=== PATIENT | female | born 1955 | race Asian ===

== ENCOUNTER 2016-07-23 15:51 | Emergency (ER) | payer BC ==
[~2016-07-23] VITALS: Ht 157.5 cm; Wt 68.9 kg
[~2016-07-23 15:51] MED LIST: AZITHROMYCIN250 MG ORAL; IBUPROFEN600 MG PO; NKM; PROMETHAZINE-C118 M1 ORAL; TYLENOL EXTRA500 MG ORAL; VICODIN 5-5001 EACH PO
[2016-07-23 16:05] VITALS: BP 130/80
[2016-07-23] MEDS ORDERED: IBUPROFEN600 MG ORAL (17:28)
[2016-07-23 17:33] VITALS: BP 129/75
--- NOTE | 2016-07-23 20:34 | Emergency Room Report ---
History of Present Illness General Chief Complaint: Multiple Trauma/Fall Source: Patient Present Illness HPI 60-year-old female presents to ED complaining of left elbow pain and bilateral knee pain. States that when walking work today she tripped and fell landing on both knees and left elbow. Patient denies hitting her head or LOC. Patient is here complaining of pain to her left elbow and bilateral knees. Pain as throbbing, 6/10, nonradiating. Worse with walking. No aggravating relieving factors. Denies any other injuries. Denies any other associated symptoms Allergies: Coded Allergies: AMOXICILLIN (Verified Allergy, Unknown, 07/24/12) PENICILLIN (Unverified Allergy, Unknown, 02/14/15) Uncoded Allergies: NUTS (Allergy, Unknown, 07/23/16) Patient History Past Medical History: DM Past Surgical History: none Pertinent Family History: none Social History: Denies: alcohol use, drug use, smoking Now: No Immunizations: UTD Reviewed Nursing Documentation: PMH: Agreed, PSxH: Agreed Nursing Documentation-PMH Past Medical History: No History, Except For Hx Cardiac Problems: No - high cholesterol, arthritis, osteoarthritis Hx Diabetes: Yes Review of Systems All Other Systems: negative except mentioned in HPI Physical Exam Vital Signs Date Time Temp Pulse Resp B/P Pulse Ox O2 Delivery O2 Flow Rate FiO2 07/23/16 15:56 97.9 88 16 130/80 97 Room Air Sp02 EP Interpretation: reviewed, normal General Appearance: no apparent distress, alert, GCS 15, non-toxic Head: normocephalic Eyes: bilateral eye PERRL, bilateral eye normal inspection ENT: normal ENT inspection Neck: normal inspection Respiratory: normal inspection Cardiovascular #1: normal inspection Gastrointestinal: normal inspection Rectal: deferred Genitourinary: no CVA tenderness Musculoskeletal: tender - L elbow. full ROM noted. no bruising/deformity Neurologic: alert, oriented x3, responsive, motor strength/tone normal, sensory intact, speech normal Psychiatric: normal inspection Skin: normal inspection Lymphatic: normal inspection Procedures Splinting Splinting : Pre-Made Type: shoulder sling Medical Decision Making Diagnostic Impression: Primary Impression: Elbow contusion Qualified Codes: S50.02XA - Contusion of left elbow, initial encounter Additional Impression: Multiple injuries due to trauma ER Course Hospital Course 60-year-old F presents to ED complaining of left elbow and bilateral knee pain s /p trip and fall Differential diagnoses include: Fracture, dislocation, sprain, contusion Clinical course Patient placed on stretcher. After initial history and physical, I ordered pain medications and Xrays of left elbow and bilateral knees Xrays prelim read shows small chip fracture of the olecranon, bilateral knee x- rays unremarkable except for some degenerative joint disease Placed in shoulder sling Diagnosis - elbow contusion, multiple injuries due to fall Stable and discharged to home with prescription for Motrin. apply ice, keep elevated. weight bear as tolerated. Followup with PMD. Return to ED if symptoms recur or worsen Other X-Ray Diagnostic Results Other X-Ray Diagnostic Results : X-Ray Ordered: L elbow, R knee, L knee EP Interpretation: No Findings: no dislocation, no soft tissue swelling Number of Views: 3 Other Impression Left elbow- small chip fracture of olecranon, no dislocation, no soft tissue swelling Right knee-No fracture, no dislocation, no soft tissue swelling Left knee-No fracture, no dislocation, no soft tissue swelling Last Vital Signs Date Time Temp Pulse Resp B/P Pulse Ox O2 Delivery O2 Flow Rate FiO2 07/23/16 17:33 97.9 76 18 129/75 99 Room Air Status: improved Disposition: HOME, SELF-CARE Condition: Stable Scripts Ibuprofen* (MOTRIN*) 600 Mg Tablet 600 MG ORAL Q8H Y for For Pain, #30 TAB 0 Refills Prov: IZA BARKER M.D. 07/23/16 Departure Forms: Return to Work Return to Work Date: Jul 25, 2016 Work Restrictions: No Heavy Lifting Patient Instructions: Elbow Contusion, [id number] IZA BARKER M.D. Jul 23, 2016 20:34
--- NOTE | 2016-07-24 09:44 | Diagnostic Imaging Report ---
Indication: Right knee pain Technique: Right knee 3 views Comparison: None Findings: There is no radiographically evident acute fracture or dislocation. Tricompartment osteophytes are seen with subchondral cystic changes. A small joint effusion may be present. There is osteopenia. Tiny ossific density projecting over the posterior joint on the lateral projection could represent a small intra-articular body. Impression: No radiographically evident acute fracture or dislocation. Degenerative changes of the right knee. Osteopenia. Suprapatellar fullness and a small joint effusion may be present. Clinical correlation recommended
--- NOTE | 2016-07-24 09:44 | Diagnostic Imaging Report ---
Indication: Left knee pain Technique: XRAY KNEE THREE VIEWS LEFT Comparison: None Findings: There is no radiographically evident acute fracture or dislocation. Medial and patellofemoral compartment osteophytes are seen with severe patellofemoral compartment joint space narrowing. There is no joint effusion. Impression: No acute osseous abnormality. Left knee degenerative changes. Osteopenia.
--- NOTE | 2016-07-24 11:46 | Diagnostic Imaging Report ---
Indication: Left elbow pain Technique: XRAY ELBOW MIN 3 VIEWS LEFT Comparison: None Findings: There is a subtle linear lucency of the lateral radial head on the AP projection. Small elbow joint effusion is seen. There is soft tissue swelling of the medial elbow. Tiny enthesophyte is noted at the triceps insertion. Impression: Subtle linear lucency of the lateral radial head on the AP projection possibly a nondisplaced fracture versus trabeculation. Small elbow joint effusion. Followup/further evaluation recommended as indicated. Soft tissue swelling of the medial elbow. Findings discussed with Dr. Navarro at 0940 hours by phone.
== END 2016-07-23 17:34 | disposition home or self-care (01) ==
LOC: EMR 16:10
DX: S50.02XA Contusion of left elbow, initial encounter (principal); M25.562 Pain in left knee; M25.561 Pain in right knee; W01.0XXA Fall on same level from slipping, tripping and stumbling without subsequent striking against object, initial encounter; Y92.89 Other specified places as the place of occurrence of the external cause; Y99.9 Unspecified external cause status; E11.9 Type 2 diabetes mellitus without complications; Z88.0 Allergy status to penicillin; Z88.1 Allergy status to other antibiotic agents; Z91.018 Allergy to other foods
CPT/HCPCS: 82962; 99284

== ENCOUNTER 2016-08-20 16:57 | Emergency (ER) | payer BC, OTHER ==
[~2016-08-20] VITALS: Ht 153 cm; Wt 72.6 kg
[~2016-08-20 16:57] MED LIST changes: +IBUPROFEN600 MG ORAL
--- NOTE | 2016-08-20 17:00 | Emergency Room Report ---
History of Present Illness General Chief Complaint: Knee pain Source: Patient Present Illness HPI Patient is a 60-year-old female who presented after a fall at work. 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 The patient stated that she fell forward onto her forearms and to her left knee. She reported having a left knee pain. Patient stated that she had been at work at time of injury. She denies any numbness or weakness distally. Injury occurred just prior to arrival Allergies: Coded Allergies: AMOXICILLIN (Verified Allergy, Unknown, 07/24/12) PENICILLIN (Unverified Allergy, Unknown, 02/14/15) Uncoded Allergies: NUTS (Allergy, Unknown, 07/23/16) Patient History Past Medical History: see triage record Reviewed Nursing Documentation: PMH: Agreed, PSxH: Agreed Nursing Documentation-PMH Hx Cardiac Problems: No - high cholesterol, arthritis, osteoarthritis Hx Diabetes: Yes Review of Systems All Other Systems: negative except mentioned in HPI Physical Exam General Appearance: well appearing, no apparent distress, alert, GCS 15 Head: normocephalic, atraumatic ENT: hearing grossly normal, normal voice Neck: full range of motion, supple Respiratory: normal inspection, lungs clear, no respiratory distress, speaking full sentences Cardiovascular #1: normal inspection, normal peripheral pulses, regular rate, rhythm Gastrointestinal: normal bowel sounds, non tender, soft Musculoskeletal: normal inspection, back normal, digits/nails normal, no calf tenderness Neurologic: normal inspection, alert, oriented x3, responsive, normal gait Psychiatric: mood/affect normal Skin: no rash Medical Decision Making Diagnostic Impression: Primary Impression: Knee contusion Additional Impression: Elbow contusion ER Course Patient presented for pain after fall. Differential diagnoses included wasn't limited to contusion, sprain, fracture among others . The patient is a sign of head injury or neck injury. The patient fell forward onto her forearms. This appears to be a simple slip and fall. The patient noted have some soft tissue swelling to her left knee. The patient also had some pain to both elbows which did not appear to require x-ray imaging. The patient was noted to have x-rays for view interpreted by me with degenerative changes without any fracture normal bony alignment. Patient was placed on light duty. The patient is advised to followup with employee health in 2-3 days. Patient was given prescription for NSAIDs and placed in an Evgeny wrap. Status: improved Disposition: HOME, SELF-CARE Condition: Stable Scripts Ibuprofen* (MOTRIN*) 600 Mg Tablet 600 MG ORAL Q8H Y for For Pain, #30 TAB 0 Refills Prov: Daniel Almazan 08/20/16 Daniel Almazan Aug 20, 2016 17:00
[2016-08-20 17:08] VITALS: BP 138/78
[2016-08-20 18:00] VITALS: BP 136/80
[2016-08-20] MEDS ORDERED: IBUPROFEN600 MG ORAL (18:06)
[2016-08-20 18:19] VITALS: BP 136/80
--- NOTE | 2016-08-21 08:44 | Diagnostic Imaging Report ---
History: Pain status post fall. Technique: Frontal, lateral, axial, and tunnel views of the left knee are provided. Comparison: No prior study is available for comparison. Findings: Moderate narrowing of the medial compartment and mild narrowing of the lateral compartment and severe patellofemoral compartment narrowing with prominence of the tibial spines and mild tricompartmental osteophytosis is consistent with moderate osteoarthritis of the left knee. A small joint effusion is present. No fractures or dislocation is seen. Impression: Moderate left knee osteoarthritis, as described. No acute fracture or dislocation identified.
== END 2016-08-20 18:19 | disposition home or self-care (01) ==
LOC: EMR 17:05
DX: S80.02XA Contusion of left knee, initial encounter (principal); S50.00XA Contusion of unspecified elbow, initial encounter; E11.9 Type 2 diabetes mellitus without complications; E78.00 Pure hypercholesterolemia, unspecified; M19.90 Unspecified osteoarthritis, unspecified site; Z88.0 Allergy status to penicillin; Z88.1 Allergy status to other antibiotic agents; Z91.018 Allergy to other foods; W18.09XA Striking against other object with subsequent fall, initial encounter; Y92.9 Unspecified place or not applicable; Y99.0 Civilian activity done for income or pay
CPT/HCPCS: 29530; 99283

== ENCOUNTER 2018-03-20 23:24 | Emergency (ER) | payer OTHER ==
[~2018-03-20] VITALS: Ht 157.5 cm; Wt 70.3 kg
[2018-03-21 00:02] VITALS: BP 138/72
[2018-03-21] MEDS ORDERED: IBUPROFEN600 MG ORAL (00:04)
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
[2018-03-21 00:10] VITALS: BP 136/71
--- NOTE | 2018-03-21 08:55 | Diagnostic Imaging Report ---
Indication: Chest pain Technique: One view of the chest Comparison: 10/22/2011 Findings: Lungs and pleural spaces are clear. Heart size is normal. No significant change Impression: No acute process
== END 2018-03-21 00:10 | disposition home or self-care (01) ==
LOC: EMR 23:44
DX: S20.212A Contusion of left front wall of thorax, initial encounter (principal); S30.1XXA Contusion of abdominal wall, initial encounter; R07.89 Other chest pain; E11.9 Type 2 diabetes mellitus without complications; Y04.0XXA Assault by unarmed brawl or fight, initial encounter; Y93.F9 Activity, other caregiving; Y92.230 Patient room in hospital as the place of occurrence of the external cause; Y99.0 Civilian activity done for income or pay; Z88.0 Allergy status to penicillin
CPT/HCPCS: 71045; 99283

== ENCOUNTER 2019-02-25 14:16 | Emergency (ER) | payer OTHER ==
[~2019-02-25] VITALS: Ht 157.5 cm; Wt 67.1 kg
[2019-02-25] MEDS ORDERED: NKM (14:46)
--- NOTE | 2019-02-25 15:53 | Emergency Room Report ---
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 Denies fall or injury. Denies pain radiation, tingling or numbness. Rating the pain in the left knee 5 out of 10 especially upon flexion of the knee and pointing to popliteal area being more painful. Has not taken any medication for pain other than over-the- counter ibuprofen. Denies chest pain, shortness of breath, palpitation, abdominal pain, nausea vomiting. Denies calf tenderness. Denies recent surgery , travel, or immobility. Allergies: Coded Allergies: AMOXICILLIN (Verified Allergy, Unknown, 02/25/19) PENICILLIN (Unverified Allergy, Unknown, 02/25/19) Uncoded Allergies: NUTS (Allergy, Unknown, 07/23/16) Patient History Past Medical History: see triage record Past Surgical History: unable to obtain Pertinent Family History: none Now: No Immunizations: UTD Reviewed Nursing Documentation: PMH: Agreed; PSxH: Agreed Nursing Documentation-PMH Past Medical History: No History, Except For Hx Cardiac Problems: No - high cholesterol, arthritis, osteoarthritis Hx Diabetes: Yes Review of Systems All Other Systems: negative except mentioned in HPI Physical Exam Vital Signs Date Time Temp Pulse Resp B/P (MAP) Pulse Ox O2 Delivery O2 Flow Rate FiO2 02/25/19 14:43 97.7 88 16 135/78 (97) 95 Room Air Sp02 EP Interpretation: reviewed, normal General Appearance: no apparent distress, alert, GCS 15, non-toxic Head: normocephalic, atraumatic Eyes: bilateral eye normal inspection, bilateral eye PERRL ENT: hearing grossly normal, normal pharynx, no angioedema, normal voice Neck: full range of motion, supple, thyroid normal, supple/symm/no masses Respiratory: normal inspection, chest non-tender, lungs clear, normal breath sounds, no rhonchi, no wheezing Cardiovascular #1: regular rate, rhythm, no edema, no murmur, normal capillary refill Cardiovascular #2: 2+ dorsalis pedis (R), 2+ dorsalis pedis (L) Gastrointestinal: normal bowel sounds, non tender, soft, non-distended, no guarding, no rebound Genitourinary: normal inspection, no CVA tenderness Musculoskeletal: back normal, digits/nails normal, gait/station normal, normal range of motion, non-tender, no calf tenderness, pelvis stable Neurologic: normal inspection, alert, oriented x3, responsive Psychiatric: judgement/insight normal, memory normal, mood/affect normal, no suicidal/homicidal ideation Skin: no rash Lymphatic: no adenopathy Medical Decision Making PA Attestation All diagnoses and treatment plans were reviewed and discussed with my supervising physician Dr. 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 Denies fall or injury. Denies pain radiation, tingling or numbness. Rating the pain in the left knee 5 out of 10 especially upon flexion of the knee and pointing to popliteal area being more painful. Has not taken any medication for pain other than over-the- counter ibuprofen. Denies chest pain, shortness of breath, palpitation, abdominal pain, nausea vomiting. Denies calf tenderness. Denies recent surgery , travel, or immobility. Ddx considered but are not limited to: Knee sprain, strain, fracture, contusion , meniscus tear injury, arthritis of knee Vital signs: are WNL, pt. is afebrile H&PE are most consistent with: Left knee arthritis ORDERS: Knee x-ray, Tylenol, Voltaren gel ER intervention: Tylenol DISCHARGE: At this time pt. is stable for d/c to home. Will provide printed patient care instructions, and any necessary prescriptions. Care plan and follow up instructions have been discussed with the patient prior to discharge. At this time patient to follow-up with her primary care provider this is not a work-related injury as it has been going on for years and arthritis is due to her age. I advised patient not to take anything with the ibuprofen family as there is an unknown status of renal function due to her uncontrolled diabetes for her lack of taking metformin. Physical therapy recommended alternate between icing and heating the affected area patient is stable at time of discharge Other X-Ray Diagnostic Results Other X-Ray Diagnostic Results : X-Ray ordered: Left knee # of Views/Limited Vs Complete: 3 View Indication: Pain EP Interpretation: Yes PA Xray: Interpretation reviewed, by supervising MD, and agrees with findings. Interpretation: no dislocation, no soft tissue swelling, no fractures Impression: No acute disease Electronically Signed by: Kandice Bear PA-C Last Vital Signs Date Time Temp Pulse Resp B/P (MAP) Pulse Ox O2 Delivery O2 Flow Rate FiO2 02/25/19 14:43 97.7 88 16 135/78 (97) 95 Room Air Disposition: HOME, SELF-CARE Condition: Stable Scripts Acetaminophen* (ACETAMINOPHEN EXTRA STRENGTH*) 500 Mg Tablet 1000 MG ORAL Q6H, #30 TAB 0 Refills Prov: Kandice Tim 02/25/19 Diclofenac Sodium (VOLTAREN) 100 Gm Gel..gram. 2 GM TP TID, #100 GM Prov: Kandice Tim 02/25/19 Patient Instructions: Arthritis, [id number], Knee Pain, [id number] Additional Instructions: Take medication as directed follow-up with your primary care provider avoid strenuous physical activity Kandice Tim Feb 25, 2019 15:53
[2019-02-25] MEDS ORDERED: VOLTAREN100 G1 TP (15:55)
[2019-02-25] MEDS ORDERED: ACETAMINOPHEN500 M3 ORAL (15:55)
--- NOTE | 2019-02-25 16:13 | NUR ---
ER DISCHARGE NOTE: Patient is cleared to be discharged per ERMD, pt is aox4, on room air, with stable vital signs. pt was given dc and prescription instructions, pt was able to verbalize understanding, pt id band. pt is able to ambulate with steady gait. applied kiana wrap to left knee jonah well.pt took all belongings.
[2019-02-25 16:14] VITALS: BP 130/78
--- NOTE | 2019-02-26 10:44 | Diagnostic Imaging Report ---
INDICATION: Knee Pain COMPARISON: None 3 views of the left knee were obtained. FINDINGS: No acute fracture, malalignment, or joint effusion are identified. There is joint space narrowing with marginal osteophyte formation and subchondral sclerosis. This is severe within the patellofemoral joint and mild to moderate in the other 2 compartments. Impression: Negative for acute injury. Osteoarthritis
== END 2019-02-25 16:13 | disposition home or self-care (01) ==
LOC: EMR 15:21
DX: M13.862 Other specified arthritis, left knee (principal); E11.9 Type 2 diabetes mellitus without complications; Z88.1 Allergy status to other antibiotic agents; Z88.0 Allergy status to penicillin; Z91.018 Allergy to other foods; E78.00 Pure hypercholesterolemia, unspecified
CPT/HCPCS: 99283